=== PATIENT | male | born 1940 | race Caucasian/White ===

== ENCOUNTER 2021-10-28 12:08 | Day surgery (SDCO) | payer MEDICARE, OTHER ==
[~2021-10-28] VITALS: Ht 172.7 cm; Wt 66.7 kg
[~2021-10-28 12:08] MED LIST: MOBIC15 MG PO
[2021-10-28 12:52] LABS: BASOPHIL 0.9 % (0-2); EOSINOPHIL 1.8 % (0-7); HGB 6.6 g/dl (13.2-18.0); LYMPHOCYTE 15.2 % (15-48); MCH 15.6 pg (25.0-31.0); MCHC 26.4 g/dL (32.0-36.0); MCV 59.1 fL (78.0-100.0); MONOCYTE 9.1 % (0-12); MPV 8.4 fL (6.0-9.5); NEUTROPHIL 72.6 % (41-80); NRBC 0; PLT 508 K/uL (150-400); RBC 4.23 M/uL (4.70-6.00); RDW 22.7 % (11.5-14.0); WBC 10.7 K/uL (4.0-10.5)
[2021-10-28 13:15] LABS: ALBUMIN 3.5 g/dL (3.4-5.0); BILIRUBIN - TOTAL 0.3 mg/dL (0.2-1.0); BUN/CREAT RATIO (CALC) 24.4 RATIO; CREATININE 0.9 mg/dL (0.67-1.17); GLOBULIN (CALCULATION) 3.9 g/dL; POTASSIUM 4.1 mmol/L (3.5-5.1); TOTAL PROTEIN 7.4 g/dL (6.4-8.2)
[2021-10-28 15:19] LABS: RETICULOCYTE COUNT 1.5 % (1.0-2.0)
[2021-10-28] MEDS ORDERED: AMARYL2 MG PO ×2 (19:03→19:12)
[2021-10-28] MEDS ORDERED: JANUVIA50 MG PO (19:03)
[2021-10-28] MEDS ORDERED: OMEPRAZOLE 20MG20 MG PO (19:05)
[2021-10-28] MEDS ORDERED: TRIAMTERENE-HC1 EACH PO (19:06)
[2021-10-28] MEDS ORDERED: METFORMIN HCL500 MG PO (19:07)
[2021-10-28] MEDS ORDERED: CARAFATE1 GM PO (19:08)
[2021-10-28] MEDS ORDERED: PROBIOTIC (19:09)
[2021-10-28] MEDS ORDERED: NORVASC5 MG PO (19:10)
[2021-10-28] MEDS ORDERED: LEXAPRO 10MG TA10 MG PO (19:10)
[2021-10-28] MEDS ORDERED: ZOCOR20 MG PO (19:12)
[2021-10-28] MEDS ORDERED: VENTOLIN HFA IN18 GM INH (19:13)
[2021-10-28] MEDS ORDERED: VIBRAMYCIN100 MG PO (19:14)
[2021-10-28] MEDS ORDERED: TRAMADOL HCL50 MG PO (19:14)
[2021-10-28] MEDS ORDERED: MYRBETRIQ25 MG PO (19:15)
[2021-10-28] MEDS ORDERED: [UNRECOGNIZED DRUG - OTHER] PO (19:16)
[2021-10-28 22:07] LABS: IRON % SATURATION 2.7 %SAT (20-50)
[2021-10-29 01:46] LABS: HCT 27.2 % (42.0-52.0); HGB 7.7 g/dL (13.2-18.0)
[2021-10-29 06:56] LABS: BASOPHIL 0.8 % (0-2); EOSINOPHIL 2.2 % (0-7); HCT 28.5 % (42.0-52.0); LYMPHOCYTE 16.4 % (15-48); MCH 17.6 pg (25.0-31.0); MCHC 28.1 g/dL (32.0-36.0); MCV 62.8 fL (78.0-100.0); MONOCYTE 9.9 % (0-12); MPV 8.4 fL (6.0-9.5); NEUTROPHIL 70.1 % (41-80); NRBC 0; PLT 414 K/uL (150-400); RBC 4.54 M/uL (4.70-6.00); RDW 26.8 % (11.5-14.0); WBC 10.7 K/uL (4.0-10.5)
[2021-10-29 07:48] LABS: CREATININE 0.85 mg/dL (0.67-1.17); FOLIC ACID (SERUM) 14.3 ng/mL (8.6-58.9); POTASSIUM 3.9 mmol/L (3.5-5.1)
[2021-10-30 08:47] LABS: BASOPHIL 0.8 % (0-2); EOSINOPHIL 1.7 % (0-7); HGB 8.4 g/dl (13.2-18.0); LYMPHOCYTE 10.3 % (15-48); MCH 17.8 pg (25.0-31.0); MCV 63.4 fL (78.0-100.0); MONOCYTE 8.8 % (0-12); MPV 8.1 fL (6.0-9.5); NRBC 0; PLT 409 K/uL (150-400); RBC 4.73 M/uL (4.70-6.00); RDW 27.1 % (11.5-14.0); WBC 11.7 K/uL (4.0-10.5)
== END 2021-10-30 12:00 | disposition home or self-care (01) ==
LOC: FER 12:08 → FMS 15:13
PROVIDERS: Allergy & Immunology Allergy; Emergency Medicine; Nurse Practitioner; Nurse Practitioner Family; ADMIT Internal Medicine
DX: D50.9 Iron deficiency anemia, unspecified (principal); K59.09 Other constipation; Z20.822 Contact with and (suspected) exposure to COVID-19; I10 Essential (primary) hypertension; E78.5 Hyperlipidemia, unspecified; K21.9 Gastro-esophageal reflux disease without esophagitis; E11.9 Type 2 diabetes mellitus without complications; M19.90 Unspecified osteoarthritis, unspecified site; I25.2 Old myocardial infarction; F32.A Depression, unspecified; F17.210 Nicotine dependence, cigarettes, uncomplicated; Z85.118 Personal history of other malignant neoplasm of bronchus and lung; Z66 Do not resuscitate; Z79.84 Long term (current) use of oral hypoglycemic drugs; Z79.899 Other long term (current) drug therapy; Z82.49 Family history of ischemic heart disease and other diseases of the circulatory system
CPT/HCPCS: 36415; 36430; 80048; 80053; 82607; 82746; 82962; 83540; 83550; 85014; 85018; 85025; 86850; 86900; 86901; 86922; 94760; 99284; G0378; J2916; J7040; P9016; U0002

== ENCOUNTER 2021-11-16 19:13 | Emergency (ER) | payer MEDICARE, OTHER ==
[~2021-11-16] VITALS: Ht 170.2 cm; Wt 66.7 kg
[~2021-11-16 19:13] MED LIST changes: +AMARYL2 MG PO; +CARAFATE1 GM PO; +JANUVIA50 MG PO; +LEXAPRO 10MG TA10 MG PO; +METFORMIN HCL500 MG PO; +MYRBETRIQ25 MG PO; +NORVASC5 MG PO; +OMEPRAZOLE 20MG20 MG PO; +PROBIOTIC; +TRAMADOL HCL50 MG PO; +TRIAMTERENE-HC1 EACH PO; +VENTOLIN HFA IN18 GM INH; +VIBRAMYCIN100 MG PO; +ZOCOR20 MG PO; +[UNRECOGNIZED DRUG - OTHER] PO
[2021-11-16 20:37] LABS: BASOPHIL 0.5 % (0-2); EOSINOPHIL 0.4 % (0-7); HCT 28.4 % (42.0-52.0); HGB 8.2 g/dl (13.2-18.0); LYMPHOCYTE 3.9 % (15-48); MCH 19.2 pg (25.0-31.0); MCHC 28.9 g/dL (32.0-36.0); MCV 66.7 fL (78.0-100.0); MONOCYTE 7.4 % (0-12); MPV 8.7 fL (6.0-9.5); NEUTROPHIL 87.3 % (41-80); NRBC 0; PLT 622 K/uL (150-400); RBC 4.26 M/uL (4.70-6.00); RDW 30.6 % (11.5-14.0); WBC 14.3 K/uL (4.0-10.5)
[2021-11-16 20:49] LABS: ALBUMIN 3.1 g/dL (3.4-5.0); BILIRUBIN - TOTAL 0.3 mg/dL (0.2-1.0); BUN/CREAT RATIO (CALC) 24.4 RATIO; CREATININE 1.31 mg/dL (0.67-1.17); GLOBULIN (CALCULATION) 3.7 g/dL; POTASSIUM 4.4 mmol/L (3.5-5.1); TOTAL PROTEIN 6.8 g/dL (6.4-8.2)
== END 2021-11-16 22:55 ==
LOC: FER 19:13
PROVIDERS: Emergency Medicine
DX: S72.331A Displaced oblique fracture of shaft of right femur, initial encounter for closed fracture (principal); F17.210 Nicotine dependence, cigarettes, uncomplicated; Z88.8 Allergy status to other drugs, medicaments and biological substances; X58.XXXA Exposure to other specified factors, initial encounter
CPT/HCPCS: 36415; 73501; 73552; 80053; 85025; 86850; 86900; 86901; J1170; J2704

== ENCOUNTER 2022-01-14 16:20 | Emergency (ER) | payer OTHER, MEDICARE ==
[~2022-01-14 16:20] MED LIST changes: +ELIQUIS2.5 MG PO; +FLOMAX0.4 MG PO; +FLONASE ALLER15.8 ML; +FLORASTOR250 MG PO; +JANUVIA100 MG PO; +MACROBID100 MG PO; +PRILOSEC20 MG PO; +SENOKOT8.6 MG PO; +SPIRIVA18 MCG INH; +ZOCOR10 M1 PO
[2022-01-14 17:08] LABS: BASOPHIL 0.7 % (0-2); EOSINOPHIL 0.3 % (0-7); HCT 35.6 % (42.0-52.0); HGB 11.1 g/dl (13.2-18.0); LYMPHOCYTE 25.1 % (15-48); MCH 23.9 pg (25.0-31.0); MCHC 31.2 g/dL (32.0-36.0); MCV 76.7 fL (78.0-100.0); MONOCYTE 9.3 % (0-12); MPV 8.7 fL (6.0-9.5); NEUTROPHIL 64.1 % (41-80); NRBC 0; PLT 391 K/uL (150-400); RBC 4.64 M/uL (4.70-6.00); RDW 20.8 % (11.5-14.0); WBC 7.4 K/uL (4.0-10.5)
[2022-01-14 17:24] LABS: ALBUMIN 3.3 g/dL (3.4-5.0); BILIRUBIN - TOTAL 0.5 mg/dL (0.2-1.0); BUN/CREAT RATIO (CALC) 26.2 RATIO; CREATININE 0.65 mg/dL (0.67-1.17); GLOBULIN (CALCULATION) 3.7 g/dL; POTASSIUM 3.8 mmol/L (3.5-5.1)
[2022-01-14 18:04] LABS: CORONAVIRUS 2019 SARS-COV-2 NEGATIVE (NEGATIVE); INFLUENZA A NAA NEGATIVE (NEGATIVE)
[2022-01-14 18:06] LABS: BILIRUBIN NEGATIVE (NEGATIVE); BLOOD 1+ Ery/uL (NEGATIVE); COLOR YELLOW (YELLOW); GLUCOSE (U) NORMAL (NORMAL); LEUKOCYTES 2+ Leu/uL (NEGATIVE); NITRITE POSITIVE (NEGATIVE); PROTEIN 2+ mg/dL (NEGATIVE)
[2022-01-14 18:07] LABS: CLARITY CLOUDY (CLEAR)
[2022-01-14 18:12] LABS: AMORPHOUS URATES CRYSTALS MODERATE; BACTERIA 3+; URINARY RBC RARE; URINARY WBC 20-50
[2022-01-14] MEDS ORDERED: PHENERGAN25 M1 PO (20:21)
== END 2022-01-14 21:28 | disposition home or self-care (01) ==
LOC: FER 16:20
PROVIDERS: Internal Medicine
DX: N39.0 Urinary tract infection, site not specified (principal); R53.1 Weakness; E11.9 Type 2 diabetes mellitus without complications; J44.9 Chronic obstructive pulmonary disease, unspecified; F17.210 Nicotine dependence, cigarettes, uncomplicated; Z20.822 Contact with and (suspected) exposure to COVID-19; Z88.8 Allergy status to other drugs, medicaments and biological substances; Z79.84 Long term (current) use of oral hypoglycemic drugs
CPT/HCPCS: 36415; 80053; 81001; 85025; J0696; J2405; J2550; J7120; U0002